=== PATIENT | female | born 2005 | race African-American/Black ===

== ENCOUNTER 2023-09-19 12:05 | Emergency (ER) | payer MEDICAID, OTHER ==
[~2023-09-19] VITALS: Ht 170.2 cm; Wt 75.0 kg
[2023-09-19 12:30] VITALS: PULSE 61; RESP 20; TEMP 98.4; O2SAT 98
[2023-09-19] MEDS: ONDANSETRON HCL 4 MG/2 ML VIAL IV ONE (12:30)
[2023-09-19] MEDS: MORPHINE SULFATE 4 MG/ML SYR/VIAL IV ONE (12:49)
[2023-09-19 14:00] VITALS: BP 112/68; PULSE 63; RESP 20; O2SAT 98
== END 2023-09-19 14:28 | disposition home or self-care (01) ==
LOC: EDBD 12:05 → ER 12:05
DX: O26.891 Other specified pregnancy related conditions, first trimester (principal); R10.2 Pelvic and perineal pain; Z3A.01 Less than 8 weeks gestation of pregnancy; Z88.2 Allergy status to sulfonamides
CPT/HCPCS: 36415; 76856; 84702

== ENCOUNTER 2024-06-01 08:55 | Observation (INO) | payer MEDICAID ==
[~2024-06-01] VITALS: Ht 170.2 cm; Wt 82.0 kg
[2024-06-01 09:00] VITALS: TEMP 98.2
[2024-06-01 09:11] VITALS: BP 100/64
--- NOTE | 2024-06-01 09:13 | ED.PDOC ---
MARKETING OUTREACH COORDINATOR HPI Comments 18 year old female presents to the ED with chief complaint of no baby movement. Patient reports that she is currently 28 weeks and has not felt any movement from the baby for the past 2 days. Patient denies any vaginal bleeding, abdominal cramping, dizziness, dysuria, chills, or vaginal discharge. Time Seen by MD: 09:11 Reviewed Notes: Nurses Notes, Medications, Allergies Allergies: Coded Allergies: Sulfa Antibiotics (Verified Allergy, Unknown, 09/19/23) Information Source: Patient Mode of Arrival: Ambulatory Timing: Days Prehospital treatment: None Severity: Moderate Vaginal Discharge: None Vaginal Lesions: None Sexual Activity: History of: Current Past Medical History PAST MEDICAL HISTORY: Denies Surgical History: Denies all surgeries FURNITURE UPHOLSTERER History: Denies all FURNITURE UPHOLSTERER Hx Family History Family History: Reviewed,noncontributory to illness Social History Smoker: Non-Smoker Alcohol: Denies ETOH Use Drugs: Denies Drug Use Lives In: Home Constitutional: denies: chills, diaphoresis, fatigue, fever, malaise, sweats, weakness, others EENTM: denies: blurred vision, double vision, ear bleeding, ear discharge, ear drainage, ear pain, ear ringing, eye pain, eye redness, hearing loss, mouth pain, mouth swelling, nasal discharge, nose bleeding, nose congestion, nose pain, photophobia, tearing, throat pain, throat swelling, voice changes, others Respiratory: denies: cough, hemoptysis, orthopnea, SOB at rest, shortness of breath, SOB with excertion, stridor, wheezing, others Cardiovascular: denies: chest pain, dizzy spells, diaphoresis, Dyspnea on exertion, edema, irregular heart beat, left arm pain, lightheadedness, palpitations, PND, syncope, others Gastrointestinal: denies: abdomen distended, abdominal pain, blood streaked bowels, constipated, diarrhea, dysphagia, difficulty swallowing, hematemesis, melena, nausea, poor appetite, poor fluid intake, rectal bleeding, rectal pain, vomiting, others Genitourinary: reports: ; denies: abnormal vagina bleeding, burning, dyspareunia, dysuria, flank pain, frequency, hematuria, incontinence, pain, vagina discharge, urgency, others Neurological: denies: dizziness, fainting, headache, left sided numbness, left sided weakness, numbness, paresthesia, pre-existing deficit, right sided numbness, right sided weakness, seizure, speech problems, tingling, tremors, wea kness, others Musculoskeletal: denies: back pain, gout, joint pain, joint swelling, muscle pain, muscle stiffness, neck pain, others Integumetry: denies: bruises, change in color, change in hair/nails, dryness, l aceration, lesions, lumps, rash, wounds, others Allergic/Immunocompromised: denies: Difficulty Healing, Frequent Infections, Hives, Itching, others Hematologic/Lymphatic: denies: anemia, blood clots, easy bleeding, easy bruising, swollen glands, others Endocrine: denies: excessive hunger, excessive sweating, excessive thirst, excessive urination, flushing, intolerance to cold, intolerance to heat, unexplained weight gain, unexplained weight loss, others Psychiatric: denies: anxiety, bipolar disorder, depression, hopeless, panic disorder, schizophrenia, sleepless, suicidal, others All Other Systems: Reviewed and Negative Physical Exam General Appearance: No Apparent Distress, Normal HEENT: Normal ENT Inspection, PERRL/EOMI Neck: Full Range of Motion, Non-Tender, Normal, Normal Inspection Respiratory: Chest Non-Tender, Lungs Clear, No Accessory Muscle Use, No Respiratory Distress, Normal Breath Sounds Cardiovascular: No Edema, No JVD, No Murmur, No Gallop, Normal Peripheral Pulses, Regular Rate/Rhythm Breast Exam: Deferred Gastrointestinal: No Organomegaly, Non Tender, No Pulsatile Mass, Normal Bowel Sounds, Soft Genitalia: Deferred Pelvic: Deferred Rectal: Deferred Extremities: No calf tenderness, Normal capillary refill, Normal inspection, Normal range of motion, Non-tender, No pedal edema Musculoskeletal : Apperance: Normal Neurologic: Alert, degreasing solution mixer II-XII nml as Tested, No Motor Deficits, Normal Affect, Normal Mood, No Sensory Deficits Cerebellar Function: Normal Reflexes: Normal Skin: Dry, Normal Color, Warm Lymphatic: No Adenopathy Was a procedure done? Was a procedure done?: No X-Ray, Labs, Meds, VS Vital Signs Date Time Temp Pulse Resp B/P (MAP) Pulse Ox O2 Delivery O2 Flow Rate FiO2 06/01/24 09:11 98.2 81 18 100/64 (76) 99 Time of 1ST Reevaluation: 09:15 Reevaluation 1ST: Unchanged Patient Education/Counseling: Diagnosis, Treatment Family Education/Counseling: No Family Present Departure 1 Departure Time of Disposition: 09:18 Impression: Primary Impression: Threatened Disposition: 01 HOME / SELF CARE / HOMELESS Condition: Other Discharged With: Self Critical Care Note Critical Care Time?: No Stability Stability form required: No Heart Score Heart Score: Heart Score Response (Comments) Value History N/A 0 EKG N/A 0 Age N/A 0 Risk Factors N/A 0 Troponin N/A 0 Total 0 I personally scribed for JULIA MACKENZIE MD ([email or web address]) on 06/01/24 at 09:13. Electronically submitted by Shawn Hanson ([email or web address]). JULIA MACKENZIE MD Jun 01, 2024 09:13
[2024-06-01 09:28] VITALS: PULSE 81; RESP 18; O2SAT 99
--- NOTE | 2024-06-01 16:47 | DVHDS2 ---
Physician Discharge Progress N Final Diagnosis: dec movement,cramping Operations or Procedures: Operations or Procedures nst,sono Condition on Discharge: Good Disposition: Home Discharge Instructions: Diet: Regular Activity: No Restrictions, As Tolerated Medications: na Follow Up Care: Specialist: 1d Discharge Statement: "Patient was advised to return to the ER or call 911 if any headaches, dizziness, shortness of breath, chest pain, abdominal pain, bleeding, fevers, or worsening of medical condition. Patient was counseled about treatment plan, medications, possible side effects, patientverbalized understanding. All questions were answered to the best of my ability. This discharge took greater then 30 minutes in planning, reviewing documenta tion, counseling the patient, and discussing with other team members." MARIXA PEOPLES DO Jun 01, 2024 16:47
== END 2024-06-01 11:03 | disposition home or self-care (01) ==
LOC: ER 08:55 → UNDOADMOB 09:23 → LDRP 09:23 → UNDODISOB 11:03
PROVIDERS: ADMIT Obstetrics & Gynecology; ATTEND Obstetrics & Gynecology
DX: O36.8130 Decreased fetal movements, third trimester, not applicable or unspecified (principal); O20.0 Threatened abortion; D84.9 Immunodeficiency, unspecified; Z3A.28 28 weeks gestation of pregnancy; Z79.899 Other long term (current) drug therapy
CPT/HCPCS: 59025; 81002; 94760; 99284; G0378